=== PATIENT | female | born 1995 | race Caucasian/White ===

== ENCOUNTER 2021-06-16 11:16 | Emergency (ER) | payer OTHER ==
[~2021-06-16] VITALS: Ht 167.6 cm; Wt 60.5 kg
[2021-06-16] MEDS ORDERED: MULTTAB20 PO (12:50)
[2021-06-16] MEDS ORDERED: PROBCAP14 PO (12:50)
[2021-06-16 14:33] LABS: BASO % 0.6 % (0.0-1.0); EOS # 0.1 10^3/uL (0.0-0.5); EOS % 1.1 % (0.0-3.0); HEMATOCRIT 42.3 % (36.0-47.0); HEMOGLOBIN 13.6 g/dl (12.0-15.5); LYMPH # 1.2 10^3/uL (1.5-5.0); LYMPH % 22.3 % (24.0-44.0); MEAN CORPUSCULAR HEMOGLOBIN 27.7 pg (27.0-33.0); MEAN CORPUSCULAR HGB CONC 32.2 g/dl (32.0-36.5); MEAN CORPUSCULAR VOLUME 86.2 fl (80.0-96.0); MONO # 0.6 10^3/uL (0.0-0.8); MONO % 11.5 % (2.0-8.0); NEUTROPHILS # 3.5 10^3/uL (1.5-8.5); NEUTROPHILS % 64.3 % (36.0-66.0); PLATELET COUNT, AUTOMATED 259 10^3/uL (150-450); RED BLOOD COUNT 4.91 10^6/uL (4.00-5.40); WHITE BLOOD COUNT 5.4 10^3/uL (4.0-10.0)
[2021-06-16 15:26] LABS: BLOOD UREA NITROGEN 12 MG/DL (7-18); CALCIUM LEVEL 9.2 MG/DL (8.5-10.1); CARBON DIOXIDE LEVEL 24 MEQ/L (21-32); CHLORIDE LEVEL 106 MEQ/L (98-107); CREATININE FOR GFR 0.69 MG/DL (0.55-1.30); GLOMERULAR FILTRATION RATE > 60.0 (>60); GLUCOSE, FASTING 81 MG/DL (70-100); POTASSIUM SERUM 3.6 MEQ/L (3.5-5.1); SODIUM LEVEL 136 MEQ/L (136-145)
[2021-06-16 16:25] VITALS: BP 124/60
== END 2021-06-16 16:40 | disposition home or self-care (01) ==
LOC: M ED 11:16
DX: O20.0 Threatened abortion (principal); O26.899 Other specified pregnancy related conditions, unspecified trimester; R10.32 Left lower quadrant pain; Z79.899 Other long term (current) drug therapy; Z3A.00 Weeks of gestation of pregnancy not specified

== ENCOUNTER 2021-09-23 15:36 | Emergency (ER) | payer OTHER ==
[~2021-09-23] VITALS: Ht 167.6 cm; Wt 64.1 kg
[~2021-09-23 15:36] MED LIST: MULTTAB20 PO; PROBCAP14 PO
[2021-09-23] MEDS ORDERED: ASPI81CH33 PO (15:48)
--- OUTSIDE RECORDS SUMMARY | 2021-09-24 00:20 | CCD ---
Author Author [facility] Organization [facility] Address Unknown Phone Unavailable Care Team Providers Care Personnel Administrator Name Role Phone RESHMA RICO MD Unavailable Unavailable JOANARESHMA MD Unavailable Unavailable JOANARESHMA MD Unavailable Unavailable JOANARESHMA MD Unavailable Unavailable JOANARESHMA MD Unavailable Unavailable JOANARESHMA MD Unavailable Unavailable JOANAEFRAQBOJUDITH JACKSON MD Unavailable Unavailable JOANAEFRAQBOJUDITH JACKSON MD Unavailable Unavailable JOANARESHMA MD Unavailable Unavailable JOANARESHMA MD Unavailable Unavailable JOANARESHMA MD Unavailable Unavailable JOANARESHMA MD Unavailable Unavailable JOANARESHMA MD Unavailable Unavailable JOANARESHMA MD Unavailable Unavailable JOANARESHMA MD Unavailable Unavailable JOANAGALINABOJUDITH JACKSON MD Unavailable Unavailable JOANAEFRAQBOJUDITH JACKSON MD Unavailable Unavailable JOANA MAQBOJUDITH JACKSON MD Unavailable Unavailable JOANAEFRAQBOJUDITH JACKSON MD Unavailable Unavailable JOANAEFRAQBOJUDITH JACKSON MD Unavailable Unavailable JOANARESHMA MD Unavailable Unavailable JOANA MAQBOJUDITH JACKSON MD Unavailable Unavailable JOANA MAQBOJUDITH JACKSON MD Unavailable Unavailable JOANAEFRAQBOJUDITH JACKSON MD Unavailable Unavailable JOANA MAQBOJUDITH JACKSON MD Unavailable Unavailable JOANA, MAQBOOL RODGER MD Unavailable Unavailable JOANA, MAQBOOL RODGER MD Unavailable Unavailable JOANA, MAQBOOL RODGER MD Unavailable Unavailable JOANA, MAQBOOL RODGER MD Unavailable Unavailable JOANA, MAQBOOL RODGER MD Unavailable Unavailable JOANA, MAQBOOL RODGER MD Unavailable Unavailable JOANA, MAQBOOL RODGER MD Unavailable Unavailable JOANA, MAQBOOL RODGER MD Unavailable Unavailable JOANA, MAQBOOL RODGER MD Unavailable Unavailable JOANA, MAQBOOL RODGER MD Unavailable Unavailable JOANA, MAQBOOL RODGER MD Unavailable Unavailable JOANA, MAQBOOL RODGER MD Unavailable Unavailable JOANA, MAQBOOL RODGER MD Unavailable Unavailable JOANA, MAQBOOL RODGER MD Unavailable Unavailable JOANA, MAQBOOL RODGER MD Unavailable Unavailable JOANA, MAQBOOL RODGER MD Unavailable Unavailable JOANA, MAQBOOL RODGER MD Unavailable Unavailable JOANA, MAQBOOL RODGER MD Unavailable Unavailable JOANA, MAQBOOL RODGER MD Unavailable Unavailable JOANA, MAQBOOL RODGER MD Unavailable Unavailable JOANA, MAQBOOL RODGER MD Unavailable Unavailable JOANA, MAQBOOL RODGER MD Unavailable Unavailable JOANA, MAQBOOL RODGER MD Unavailable Unavailable JOANA, MAQBOOL RODGER MD Unavailable Unavailable JOANA, MAQBOOL RODGER MD Unavailable Unavailable JOANA, MAQBOOL RODGER MD Unavailable Unavailable JOANA, MAQBOOL RODGER MD Unavailable Unavailable JOANA, MAQBOOL RODGER MD Unavailable Unavailable JOANA, MAQBOOL RODGER MD Unavailable Unavailable JOANA, MAQBOOL RODGER MD Unavailable Unavailable JOANA, MAQBOOL RODGER MD Unavailable Unavailable JOANA, MAQBOOL RODGER MD Unavailable Unavailable JOANA, MAQBOOL RODGER MD Unavailable Unavailable JOANA, MAQBOOL RODGER MD Unavailable Unavailable JOANA, MAQBOOL RODGER MD Unavailable Unavailable JOANA, MAQBOOL RODGER MD Unavailable Unavailable JOANA, MAQBOOL RODGER MD Unavailable Unavailable JOANA, MAQBOOL RODGER MD Unavailable Unavailable JOANA, MAQBOOL RODGER MD Unavailable Unavailable JOANA, MAQBOOL RDOGER MD Unavailable Unavailable JOANA, MAQBOOL RODGER MD Unavailable Unavailable JOANA, MAQBOOL RODGER MD Unavailable Unavailable JOANA, MAQBOOL RODGER MD Unavailable Unavailable JOANA, MAQBOOL RODGER MD Unavailable Unavailable JOANA, MAQBOOL RODGER MD Unavailable Unavailable JOANA, MAQBOOL RODGER MD Unavailable Unavailable JOANA, MAQBOOL RODGER MD Unavailable Unavailable JOANA, MAQBOOL RODGER MD Unavailable Unavailable JOANA, MAQBOOL RODGER MD Unavailable Unavailable JOANA, MAQBOOL RODGER MD Unavailable Unavailable JOANA, MAQBOOL RODGER MD Unavailable Unavailable JOANA, MAQBOOL RODGER MD Unavailable Unavailable JOANA, MAQBOOL RODGER MD Unavailable Unavailable JOANA, MAQBOOL RODGER MD Unavailable Unavailable Re-disclosure Warning The records that you are about to access may contain information from federally-assisted alcohol or drug abuse programs. If such information is present, then the following federally mandated warning applies: This information has been disclosed to you from records protected by federal confidentiality rules (42 CFR part 2). The federal rules prohibit you from making any further disclosure of this information unless further disclosure is expressly permitted by the written consent of the person to whom it pertains or as otherwise permitted by 42 CFR part 2. A general authorization for the release of medical or other information is NOT sufficient for this purpose. The Federal rules restrict any use of the information to criminally investigate or prosecute any alcohol or drug abuse patient.The records that you are about to access may contain highly sensitive health information, the redisclosure of which is protected by Article 27-F of the [facility] [facility] [place] [facility] law. If you continue you may have access to information: Regarding HIV / AIDS; Provided by facilities licensed or operated by the [facility] Office of Mental Health; or Provided by the [facility] Office for People With Developmental Disabilities. If such information is present, then the following [facility] mandated warning applies: This information has been disclosed to you from confidential records which are protected by state law. State law prohibits you from making any further disclosure of this information without the specific written consent of the person to whom it pertains, or as otherwise permitted by law. Any unauthorized further disclosure in violation of state law may result in a fine or skilled nursing sentence or both. A general authorization for the release of medical or other information is NOT sufficient authorization for further disc losure. Encounters Encounter Providers Location Date Indications Data Source(s ) Outpatient Attender: RODGER RICO MD Medical [facility] 09/09 01:15:00 PM EST [facility] (Rodger Rico MD) Medications Medication Brand Name Start Date Product Form Dose Route Admi nistrative Instructions Pharmacy Instructions Status Indications Reaction Description Data Source(s) 09/09/2021 12:00:00 AM EST active [facility] (Rodger Rcio MD) Aspirin 81 MG Delayed Release Oral Tablet Aspirin 09/09/2021 1 2:00:00 AM EST ORAL active [facility] (Rodger Rico MD) Probiotic Mature Adult Probiotic Mature Adult 09/09/2021 12:00:00 AM EST ORAL active [facility] (Amber Rico MD) Insurance Providers Payer name Policy type / Coverage type Policy ID Covered libertarian ID Covered libertarian's relationship to villalba Policy Villalba Plan Information [facility] [id number] [facility] [id number] Problems, Conditions, and Diagnoses No Information Surgeries/Procedures Procedure Description Date Indications Data Source(s) ECG ROUTINE ECG W/LEAST 12 LDS W/I&R 09/09/2021 12:00: 00 AM EST [facility] (Rodger Rico MD) ECHO TTHRC R-T 2D W/WOM-MODE COMPL SPEC&COLR DOP 09/09 12:00:00 AM EST [facility] (Rodger Rico MD) OFFICE OUTPATIENT NEW 45 MINUTES 09/09/2021 12:00:00 A M EST [facility] (Rodger Rico MD) Results No Information Social History No Information Vital Signs ID Date Data Source UNK Name Value Range Interpretation Code Description Data Source(s) Body height 66 [in_i] 66 [in_i] [facility] (Rodger Rico MD) 5'6" Oxygen saturation in Arterial blood by Pulse oximetry 99 % 99 % [facility] (Rodger Rico MD) Body weight 141.50 [lb_av] 141.50 [lb_av] [facility] T (Rodger Rico MD) Body mass index (BMI) [Ratio] 22.8 kg/m2 22.8 k g/m2 [facility] (Rodger Rico MD) Body temperature 97.9 [degF] 97.9 [degF] JENELLE (Rodger Rico MD) Systolic blood pressure 122 mm[Hg] 122 mm[Hg] M [facility] (Rodger Rico MD) Diastolic blood pressure 73 mm[Hg] 73 mm[Hg] [facility] (Rodger Rico MD) Heart rate 89 /min 89 /min JENELLE (Rodger Rico MD)
--- OUTSIDE RECORDS SUMMARY | 2021-09-24 00:20 | CCD | Continuity of Care Document ---
Author Author [facility] Organization Unknown Address [address] [place] [id number] Phone [phone] Care Team Providers Care Contact Center Analyst Name Role Phone Chrisdianne Torres [facility] AUTM [phone] Chris Melissa [facility] AUT [phone] Social History Type Date Description Comments Sex Unknown Allergies and adverse reactions Description No Known Drug Allergies Medications Active Medications SIG Qnty Indications Ordering Provide r Date Aspirin 81mg Tablets 1 by mouth every day 90tabs [facility] 09/09/20 21 27-1mg Tablets [facility] 09/09/2021 Probiotic Mature Adult Capsules take one by mouth twice a day 30caps [facility] Vital Signs Date Vital Result Comment 09/09/2021 2:00pm Height 66 inches 5'6" Weight 141.50 lb BMI (Body Mass Index) 22.8 kg/m2 Body Temperature 97.9 F BP Systolic 122 mmHg BP Diastolic 73 mmHg Heart Rate 89 /min O2 % BldC Oximetry 99 % Referrals Refer to Reason for Referral Status Appt Date Rodger Rico M.D. Created [address] [place] [id number] [phone]
--- OUTSIDE RECORDS SUMMARY | 2021-09-24 00:20 | CCD | Continuity of Care Document ---
Author Author [facility] Organization Unknown Address [address] [place] [id number] Phone [phone] Care Team Providers Care Intensive Care Anaesthetist Name Role Phone Chris Torres [facility] AUTM [phone] Chris Melissa [facility] AUT [phone] Social History Type Date Description Comments Sex Unknown Allergies and adverse reactions Description No Known Drug Allergies Medications Active Medications SIG Qnty Indications Ordering Provide r Date Aspirin 81mg Tablets DR 1 by mouth every day 90tabs Rodger [...] /min O2 % BldC Oximetry 99 % Procedures Date Code Description Status 09/09/2021 23461 Office/Outpatient New Moderate M DM 45-59 Minutes Completed 09/09/2021 81872 Echocardiogram, Complete Complet ed 09/09/2021 86831 EKG Completed Encounters Type Date Location Provider Dx Diagnosis Office Visit 09/09/2021 2:15p [facility] R07.9 Chest pain, unspecified I49.49 Other premature depolarizati on I30.9 Acute pericarditis, unspecif ied Assessments Date Code Description Provider 09/09/2021 R07.9 Chest pain, unspecified [facility]ger As [facility] 09/09/2021 I49.49 Other premature depolarization M catherine [facility] 09/09/2021 I30.9 Acute pericarditis, unspecified [facility] Plan of Treatment Future Appointment(s):* 10/23/2021 2:15 pm - [facility] at [facility] Referrals Refer to Dr Reason for Referral Status Appt Date Rodger Rico M.D. Created [address] [place] [id number] [phone]
[2021-09-24 00:50] LABS: GC DNA AMPLIFICATION NEGATIVE (NEGATIVE)
--- NOTE | 2021-09-24 01:20 | REPVR ---
PROCEDURE INFORMATION: Exam: US After First Trimester, Transabdominal Exam date and time: 09/23/2021 11:44 PM Age: 25 years old Clinical indication: complicated by abdominal or pelvic pain; Lower; Second trimester (14 weeks 0 days to 27 weeks 6 days); Gestational age or lmp: 19w2d; ; Additional info: Abd pain, pelvic pain TECHNIQUE: Imaging protocol: Real-time transabdominal obstetrical ultrasound of the maternal pelvis and a second or third trimester with image documentation. COMPARISON: No relevant prior studies available. FINDINGS: Last menstrual period: 05/11/2021 Gestation: There is a single live intrauterine . heart rate: 135 bpm Presentation: Cephalic presentation: Placenta: Anterior location. Grade 1. No placenta previa or placental abruption identified. Amniotic fluid: Within normal limits. ANATOMY: midline falx: Within normal limits. cerebellum: Within normal limits. lateral ventricles: Within normal limits. cisterna magna: Within normal limits. choroid plexus: Within normal limits. upper lip and nose: Within normal limits. heart four-chamber view, heart size and position: Within normal limits. kidneys: Within normal limits. stomach: Within normal limits. urinary bladder: Within normal limits. spine: Within normal limits. Umbilical cord insertion site into the abdomen: Within normal limits. Umbilical cord vessel number: Normal 3 vessel umbilical cord. arms and hands: Within normal limits. legs and feet: Within normal limits. BIOMETRY: Estimated due date (AUA): 02/13/2022 Estimated due date (LMP): 02/15/2022 Gestational age (AUA): 19 weeks 4 days Gestational age (LMP): 19 weeks 2 days Estimated weight: 293 g +/- 43 g (0 lb 10 oz +/- 2 oz) Estimated weight percentile: 55% Biparietal diameter (BPD): 4.52 cm; 19 weeks 5 days (60%) Head circumference (HC): 16.71 cm; 19 weeks 3 days (52%) Abdominal circumference (AC): 14.61 cm; 20 weeks 0 days (63%) Humerus length (HL): 2.86 cm; 19 weeks 2 days (50%) Femur length (FL): 2.89 cm; 19 weeks 0 days (39%) biometric ratios: CI = 0.75 (0.70-0.86); FL/BPD = 0.64; HC/AC = 1.14 (1.09-1.26); FL/AC = 0.20 MATERNAL: Uterus: Unremarkable. Cervix: Closed. 3.6 cm in length. Right ovary/adnexa: Ovary is obscured by overlying bowel gas. Left ovary/adnexa: Ovary is obscured by overlying bowel gas. Intraperitoneal space: No intraperitoneal free fluid. IMPRESSION: 1. Single live intrauterine with a gestational age by today's ultrasound of 19 weeks 4 days and estimated due date on 02/13/2022 with appropriate signs of growth. 2. Estimated weight of 293 g +/- 43 g (0 lb 10 oz +/- 2 oz), which is in the 55th percentile. Electronically signed by: Moi Kaba On 09/24/2021 01:19:35 AM
[2021-09-24] MEDS ORDERED: METR1GEL7 PV (01:43)
[2021-09-24 02:15] VITALS: BP 118/64
== END 2021-09-24 02:17 | disposition home or self-care (01) ==
LOC: M ED 15:36
DX: O26.90 Pregnancy related conditions, unspecified, unspecified trimester (principal); R10.9 Unspecified abdominal pain; O23.592 Infection of other part of genital tract in pregnancy, second trimester; Z3A.19 19 weeks gestation of pregnancy; Z79.899 Other long term (current) drug therapy

== ENCOUNTER 2021-12-19 00:17 | Outpatient (CLI) | payer OTHER ==
[~2021-12-19] VITALS: Ht 167.6 cm; Wt 73.4 kg
[~2021-12-19 00:17] MED LIST changes: +ASPI81CH33 PO; +METR1GEL7 PV
[2021-12-19 00:33] VITALS: BP 134/80
[2021-12-19] MEDS ORDERED: MORPHINE 4 MG/ML 1ML VIAL/SYRINGE (J2270) IV ONE ×2 (00:55→02:00)
[2021-12-19] MEDS ORDERED: LR 1,000 ML IV SCH (01:00)
[2021-12-19] MEDS ORDERED: LR 1,000 ML IV ONE (01:00)
[2021-12-19 01:09] VITALS: BP 127/86
[2021-12-19 01:23] LABS: HEMATOCRIT 36.7 % (36.0-47.0); HEMOGLOBIN 11.9 g/dl (12.0-15.5); MEAN CORPUSCULAR HGB CONC 32.4 g/dl (32.0-36.5); MEAN CORPUSCULAR VOLUME 83.2 fl (80.0-96.0); PLATELET COUNT, AUTOMATED 228 10^3/uL (150-450); RED BLOOD COUNT 4.41 10^6/uL (4.00-5.40); WHITE BLOOD COUNT 10.6 10^3/uL (4.0-10.0)
[2021-12-19 01:46] VITALS: BP 126/79
[2021-12-19 01:49] LABS: ALBUMIN 2.7 GM/DL (3.2-5.2); ALT/SGPT 23 U/L (12-78); BILIRUBIN,TOTAL 0.1 MG/DL (0.2-1.0); BLOOD UREA NITROGEN 13 MG/DL (7-18); CALCIUM LEVEL 9.2 MG/DL (8.5-10.1); CARBON DIOXIDE LEVEL 23 MEQ/L (21-32); CHLORIDE LEVEL 109 MEQ/L (98-107); CREATININE FOR GFR 0.81 MG/DL (0.55-1.30); GLOMERULAR FILTRATION RATE > 60.0 (>60); GLUCOSE, FASTING 103 MG/DL (70-100); POTASSIUM SERUM 3.8 MEQ/L (3.5-5.1); SODIUM LEVEL 140 MEQ/L (136-145); TOTAL PROTEIN 6.3 GM/DL (6.4-8.2)
[2021-12-19 02:04] VITALS: BP 157/98
[2021-12-19] MEDS ORDERED: TAMSULOSIN 0.4 MG CAP PO ONE (02:30)
[2021-12-19 03:00] VITALS: BP 117/60
[2021-12-19] MEDS ORDERED: FLUCONAZOLE 50MG TABLET PO ONE (04:00)
[2021-12-19] MEDS ORDERED: CYCLOBENZAPRINE 5MG TABLET PO ONE (04:00)
[2021-12-19 04:30] VITALS: BP 120/79
[2021-12-19] MEDS ORDERED: CYCL5TAB PO (04:40)
[2021-12-19] MEDS ORDERED: TAMSULOSIN 0.4 MG CAP PO SCH (09:00)
== END 2021-12-19 04:40 | disposition home or self-care (01) ==
LOC: M LDO 00:17
PROVIDERS: ATTEND Obstetrics & Gynecology
DX: O26.893 Other specified pregnancy related conditions, third trimester (principal); R25.2 Cramp and spasm; Z3A.31 31 weeks gestation of pregnancy; O10.013 Pre-existing essential hypertension complicating pregnancy, third trimester
CPT/HCPCS: 59025; 76775; 76815; 80053; 81001; 85027; 96361; 96374; 96376; G0378; G0463; J2270

== ENCOUNTER → 2022-01-06 | Outpatient (CLI) | payer OTHER ==
[~2022-01-06] MED LIST changes: +CYCL5TAB PO
[2022-01-06 15:10] LABS: HEMATOCRIT 36.4 % (36.0-47.0); MEAN CORPUSCULAR HEMOGLOBIN 27.6 pg (27.0-33.0); MEAN CORPUSCULAR VOLUME 83.7 fl (80.0-96.0); PLATELET COUNT, AUTOMATED 236 10^3/uL (150-450); RED BLOOD COUNT 4.35 10^6/uL (4.00-5.40); WHITE BLOOD COUNT 10.3 10^3/uL (4.0-10.0)
[2022-01-06 15:28] LABS: CREATININE,RANDOM URINE 39.1 MG/DL; TOTAL PROTEIN,RANDOM URINE 7.6 MG/DL (0.0-12.0)
[2022-01-06 15:40] LABS: ALT/SGPT 40 U/L (12-78); BILIRUBIN,TOTAL 0.2 MG/DL (0.2-1.0); CREATININE FOR GFR 0.56 MG/DL (0.55-1.30); GLOMERULAR FILTRATION RATE > 60.0 (>60); LDH LACTATE DEHYDROGENASE 142 U/L (84-246); URIC ACID 3.8 MG/DL (2.6-6.0)
== END ==
LOC: M LAB 14:36
PROVIDERS: ATTEND Obstetrics & Gynecology
DX: I10 Essential (primary) hypertension (principal)

== ENCOUNTER 2022-01-16 19:17 | Outpatient (CLI) | payer OTHER ==
[~2022-01-16] VITALS: Ht 167.6 cm; Wt 75.5 kg
[2022-01-16] MEDS ORDERED: ACET325C5 PO (19:39)
[2022-01-16 19:40] VITALS: BP 155/104
[2022-01-16 19:55] VITALS: BP 148/99
[2022-01-16] MEDS ORDERED: FIORICET TAB PO ONE (20:20)
[2022-01-16] MEDS ORDERED: ONDANSETRON 4MG ORAL DISINTEGRATING TAB PO ONE (20:25)
[2022-01-16] MEDS ORDERED: diphenhydrAMINE 25MG CAP PO ONE (20:30)
[2022-01-16 21:01] VITALS: BP 153/97
[2022-01-16 21:53] VITALS: BP 142/97
[2022-01-16] MEDS ORDERED: PROCHLORPERAZINE 5MG TAB PO ONE (22:00)
[2022-01-17] MEDS ORDERED: CYCL-707 PO (13:52)
== END 2022-01-16 22:11 | disposition home or self-care (01) ==
LOC: M LDO 19:17
PROVIDERS: ATTEND Obstetrics & Gynecology
DX: O10.013 Pre-existing essential hypertension complicating pregnancy, third trimester (principal); Z3A.35 35 weeks gestation of pregnancy
CPT/HCPCS: 59025; 76815; G0463

== ENCOUNTER 2022-01-17 13:32 | Outpatient (CLI) | payer OTHER ==
[~2022-01-17] VITALS: Ht 167.6 cm; Wt 76.2 kg
[~2022-01-17 13:32] MED LIST changes: +ACET325C5 PO
[2022-01-17 13:48] VITALS: BP 139/97
[2022-01-17] MEDS ORDERED: CYCL-707 PO (13:52)
[2022-01-17 14:49] LABS: URINE TOTAL PROTEIN 11.4 MG/DL (0-12)
[2022-01-17 15:56] LABS: TOTAL PROTEIN 24 HOUR URINE 290.7 MG/24HR (50-150)
== END 2022-01-17 15:44 | disposition home or self-care (01) ==
LOC: M LDO 13:32
PROVIDERS: ATTEND Registered Nurse
DX: O10.013 Pre-existing essential hypertension complicating pregnancy, third trimester (principal); Z3A.35 35 weeks gestation of pregnancy
CPT/HCPCS: 59025; 81050; 84156; G0378; G0463

== ENCOUNTER → 2022-01-22 | Outpatient (CLI) | payer OTHER ==
[~2022-01-22] MED LIST changes: +CYCL-707 PO
[2022-01-22 11:15] LABS: BASO % 0.4 % (0.0-1.0); EOS # 0.1 10^3/uL (0.0-0.5); EOS % 0.8 % (0.0-3.0); HEMATOCRIT 36.8 % (36.0-47.0); HEMOGLOBIN 11.5 g/dl (12.0-15.5); LYMPH # 2.2 10^3/uL (1.5-5.0); LYMPH % 20.5 % (24.0-44.0); MEAN CORPUSCULAR HEMOGLOBIN 26.2 pg (27.0-33.0); MEAN CORPUSCULAR HGB CONC 31.3 g/dl (32.0-36.5); MEAN CORPUSCULAR VOLUME 83.8 fl (80.0-96.0); MONO # 0.8 10^3/uL (0.0-0.8); MONO % 7.7 % (2.0-8.0); NEUTROPHILS # 7.4 10^3/uL (1.5-8.5); NEUTROPHILS % 69.4 % (36.0-66.0); PLATELET COUNT, AUTOMATED 226 10^3/uL (150-450); RED BLOOD COUNT 4.39 10^6/uL (4.00-5.40); WHITE BLOOD COUNT 10.7 10^3/uL (4.0-10.0)
[2022-01-22 11:52] LABS: ALBUMIN 2.6 GM/DL (3.2-5.2); ALT/SGPT 34 U/L (12-78); BILIRUBIN,TOTAL 0.2 MG/DL (0.2-1.0); BLOOD UREA NITROGEN 10 MG/DL (7-18); CALCIUM LEVEL 9.2 MG/DL (8.5-10.1); CARBON DIOXIDE LEVEL 25 MEQ/L (21-32); CHLORIDE LEVEL 105 MEQ/L (98-107); GLOMERULAR FILTRATION RATE > 60.0 (>60); GLUCOSE, FASTING 74 MG/DL (70-100); LDH LACTATE DEHYDROGENASE 159 U/L (84-246); POTASSIUM SERUM 4.4 MEQ/L (3.5-5.1); SODIUM LEVEL 137 MEQ/L (136-145); TOTAL PROTEIN 5.9 GM/DL (6.4-8.2)
== END ==
LOC: M LAB 10:17
PROVIDERS: ATTEND Obstetrics & Gynecology
DX: O10.013 Pre-existing essential hypertension complicating pregnancy, third trimester (principal)

== ENCOUNTER → 2022-02-06 | Outpatient (CLI) | payer OTHER ==
[~2022-02-06] MED LIST changes: +ACET-683 PO; +COLA100C5 PO; +IBUP80TA PO; +OXYC-517 PO
[2022-02-06 13:56] LABS: APPEARANCE, URINE CLEAR (CLEAR); BACTERIA, URINE AUTO NEGATIVE (NEGATIVE); BILIRUBIN, URINE AUTO NEGATIVE (NEGATIVE); BLOOD, URINE BLOOD NEGATIVE (NEGATIVE); COLOR, URINE YELLOW (YELLOW); GLUCOSE, URINE (UA) AUTO NEGATIVE (NEGATIVE); KETONE, URINE AUTO NEGATIVE (NEGATIVE); LEUKOCYTE ESTERASE, URINE AUTO NEGATIVE (NEGATIVE); NITRITE, URINE AUTO NEGATIVE (NEGATIVE); PROTEIN, URINE AUTO NEGATIVE (NEGATIVE); RBC, URINE AUTO 0 /HPF (0-3); SPECIFIC GRAVITY URINE AUTO 1.013 (1.002-1.035); SQUAMOUS EPITHELIAL CELL UR AU 0 /HPF (0-6); UROBILINOGEN, URINE AUTO 0.2 mg/dL (0.0-2.0); WBC, URINE AUTO 0 /HPF (0-3)
== END ==
LOC: M LAB 12:46
PROVIDERS: ATTEND Obstetrics & Gynecology
DX: R30.9 Painful micturition, unspecified (principal)

== ENCOUNTER 2022-04-09 07:52 | Emergency (ER) | payer OTHER ==
[~2022-04-09] VITALS: Ht 167.6 cm; Wt 64.8 kg
[2022-04-09] MEDS ORDERED: METR0.7533 TOP (08:01)
[2022-04-09 08:46] LABS: BASO % 0.6 % (0.0-1.0); EOS # 0.1 10^3/uL (0.0-0.5); EOS % 1.9 % (0.0-3.0); HEMATOCRIT 38.8 % (36.0-47.0); HEMOGLOBIN 12.4 g/dl (12.0-15.5); LYMPH # 1.8 10^3/uL (1.5-5.0); LYMPH % 38.2 % (24.0-44.0); MEAN CORPUSCULAR HEMOGLOBIN 26.6 pg (27.0-33.0); MEAN CORPUSCULAR VOLUME 83.3 fl (80.0-96.0); MONO # 0.4 10^3/uL (0.0-0.8); MONO % 9.2 % (2.0-8.0); NEUTROPHILS # 2.4 10^3/uL (1.5-8.5); NEUTROPHILS % 50.1 % (36.0-66.0); PLATELET COUNT, AUTOMATED 292 10^3/uL (150-450); RED BLOOD COUNT 4.66 10^6/uL (4.00-5.40); WHITE BLOOD COUNT 4.8 10^3/uL (4.0-10.0)
[2022-04-09] MEDS ORDERED: PERCOCET 5MG/325MG TAB PO ONE (09:05)
[2022-04-09] MEDS ORDERED: NS 1,000 ML IV ONE (09:05)
[2022-04-09] MEDS ORDERED: ONDANSETRON 4MG/2ML VIAL IV ONE (09:05)
[2022-04-09 09:13] LABS: ALT/SGPT 23 U/L (12-78); BILIRUBIN,DIRECT 0.2 MG/DL (0.0-0.2); BILIRUBIN,TOTAL 0.6 MG/DL (0.2-1.0); LIPASE 110 U/L (73-393); TOTAL PROTEIN 7.3 GM/DL (6.4-8.2)
[2022-04-09 09:57] LABS: HCG, SERUM QUANTITATIVE < 1.0 MIU/ML
[2022-04-09] MEDS ORDERED: ISOVUE-370 76% 100ML VIAL As Ordered ONE (10:50)
[2022-04-09] MEDS: GASTROGRAFIN SOLUTION 30ML PO SCH ×2 (11:07→11:37)
[2022-04-09 15:10] VITALS: BP 121/82
== END 2022-04-09 15:15 | disposition home or self-care (01) ==
LOC: M ED 07:52
DX: R10.31 Right lower quadrant pain (principal); R11.0 Nausea; I10 Essential (primary) hypertension; K58.9 Irritable bowel syndrome, unspecified
CPT/HCPCS: 36415; 74177; 76830; 76856; 80047; 80076; 81001; 83690; 84702; 85025; 93976; 96361; 96374; 99284; J2405; Q9963; Q9967

== ENCOUNTER 2022-06-30 12:53 | Emergency (ER) | payer OTHER ==
[~2022-06-30] VITALS: Ht 167.6 cm; Wt 63.6 kg
[2022-06-30 12:53] VITALS: BP 136/88
[~2022-06-30 12:53] MED LIST changes: +METR0.7533 TOP
== END 2022-06-30 13:35 | disposition left against medical advice (07) ==
LOC: M ED 12:53
DX: Z53.29 Procedure and treatment not carried out because of patient's decision for other reasons (principal)

== ENCOUNTER → 2022-09-23 | Outpatient (CLI) | payer OTHER ==
[~2022-09-23] MED LIST changes: +METR0.7526 TOP; -METR0.7533 TOP
== END ==
LOC: M WHC 14:10
PROVIDERS: ATTEND Obstetrics & Gynecology
DX: N63.11 Unspecified lump in the right breast, upper outer quadrant (principal)

== ENCOUNTER → 2022-10-01 | Outpatient (CLI) | payer OTHER ==
[~2022-10-01] MED LIST changes: +**SFHN** LIDOCAINE 1% MDV 20ML VIAL ONE; +**SFHN** SODIUM BICARBONATE 8.4% 10MEQ 10ML VIAL ONE
[2022-10-01 14:39] VITALS: BP 144/88
== END ==
LOC: M WHCPRO 13:50
PROVIDERS: ATTEND Obstetrics & Gynecology
DX: O99.892 Other specified diseases and conditions complicating childbirth (principal); N63.11 Unspecified lump in the right breast, upper outer quadrant; Z3A.23 23 weeks gestation of pregnancy

== ENCOUNTER → 2022-10-19 | Outpatient (CLI) | payer OTHER ==
[~2022-10-19] MED LIST changes: -**SFHN** LIDOCAINE 1% MDV 20ML VIAL ONE; -**SFHN** SODIUM BICARBONATE 8.4% 10MEQ 10ML VIAL ONE
[2022-10-19 14:49] LABS: HEMATOCRIT 34.1 % (36.0-47.0); HEMOGLOBIN 10.9 g/dl (12.0-15.5); MEAN CORPUSCULAR HEMOGLOBIN 27.3 pg (27.0-33.0); MEAN CORPUSCULAR VOLUME 85.5 fl (80.0-96.0); PLATELET COUNT, AUTOMATED 277 10^3/uL (150-450); RED BLOOD COUNT 3.99 10^6/uL (4.00-5.40)
[2022-10-19 15:08] LABS: URIC ACID 3.9 MG/DL (3.1-7.8)
[2022-10-19 15:12] LABS: ALBUMIN 2.4 G/DL (3.2-5.2); ALKALINE PHOSPHATASE 75 U/L (46-116); ALT/SGPT 10 U/L (7.0-40); AST/SGOT 15 U/L (<34); BILIRUBIN,TOTAL 0.2 MG/DL (0.3-1.2); BLOOD UREA NITROGEN 12 MG/DL (9-23); CALCIUM LEVEL 8.8 MG/DL (8.5-10.1); CARBON DIOXIDE LEVEL 21 MMOL/L (20-31); CHLORIDE LEVEL 102 MMOL/L (98-107); GLOMERULAR FILTRATION RATE > 60.0 (>60); GLUCOSE, FASTING 70 MG/DL (60-100); POTASSIUM SERUM 4.1 MMOL/L (3.5-5.1); SODIUM LEVEL 136 MMOL/L (136-145); TOTAL PROTEIN 5.8 G/DL (5.7-8.2)
[2022-10-19 15:12] LABS: CREATININE,RANDOM URINE 36.1 MG/DL
== END ==
LOC: M LAB 14:17
DX: R80.9 Proteinuria, unspecified (principal); O10.012 Pre-existing essential hypertension complicating pregnancy, second trimester

== ENCOUNTER → 2022-10-21 | Outpatient (REF) | payer OTHER ==
[2022-10-21 16:16] LABS: URINE TOTAL PROTEIN 6.9 MG/DL (0-14)
[2022-10-21 16:36] LABS: TOTAL PROTEIN 24 HOUR URINE 196.6 MG/24HR (50-80)
== END ==
LOC: M LAB REF 13:59
PROVIDERS: ATTEND Obstetrics & Gynecology
DX: R80.9 Proteinuria, unspecified (principal); O10.012 Pre-existing essential hypertension complicating pregnancy, second trimester

== ENCOUNTER → 2022-11-06 | Outpatient (CLI) | payer OTHER | LOC: M WHC 15:35 | PROVIDERS: ATTEND Obstetrics & Gynecology | DX: Z36.89 Encounter for other specified antenatal screening (principal); Z3A.29 29 weeks gestation of pregnancy ==

== ENCOUNTER 2023-01-04 05:19 | Inpatient (IN) | payer OTHER ==
[~2023-01-04] VITALS: Ht 167.6 cm; Wt 73.3 kg
[2023-01-04] VITALS (8 sets, daily range): BP systolic 119–140; BP diastolic 75–95
[~2023-01-04 05:19] MED LIST changes: +D400400C PO; +IRON65TA2 PO; +LABE100T71 PO
[2023-01-04] MEDS ORDERED: LACTATED RINGER'S 1000 ML IV STA (05:33)
[2023-01-04] MEDS ORDERED: ceFAZolin SOD 2 GM in IV 1 EA IV ONE (05:35)
[2023-01-04] MEDS ORDERED: LR 1,000 ML IV SCH ×2 (05:35→07:15)
[2023-01-04 06:25] LABS: HEMATOCRIT 36.9 % (36.0-47.0); HEMOGLOBIN 11.9 g/dl (12.0-15.5); MEAN CORPUSCULAR HEMOGLOBIN 27.5 pg (27.0-33.0); MEAN CORPUSCULAR HGB CONC 32.2 g/dl (32.0-36.5); MEAN CORPUSCULAR VOLUME 85.4 fl (80.0-96.0); PLATELET COUNT, AUTOMATED 208 10^3/uL (150-450); RED BLOOD COUNT 4.32 10^6/uL (4.00-5.40); WHITE BLOOD COUNT 8.7 10^3/uL (4.0-10.0)
[2023-01-04] MEDS ORDERED: BICITRA 30ML SOLN UDC PO ONE (06:30)
[2023-01-04] MEDS ORDERED: fentaNYL 100 MCG/2 ML INJECTION IV PRN (07:15)
[2023-01-04] MEDS: SLF 3 ML SYR IV SCH ×3 (07:15→23:15)
[2023-01-04] MEDS ORDERED: METOCLOPRAMIDE INJ 10MG/2ML VIAL IV PRN ×2 (07:15→09:40)
[2023-01-04] MEDS ORDERED: diphenhydrAMINE 50MG/ML VIAL IV PRN (07:15)
[2023-01-04] MEDS ORDERED: **NOTE PATIENT COMMENT** MISC XX SCH (07:15)
[2023-01-04] MEDS ORDERED: oxyCODONE 5MG TAB PO PRN ×2 (07:15→09:40)
[2023-01-04] MEDS ORDERED: NALOXONE INJ 0.4MG/1ML VIAL IV PRN ×2 (07:15)
[2023-01-04] MEDS ORDERED: ONDANSETRON 4MG 2ML VIAL IV PRN ×2 (07:15→09:40)
[2023-01-04] MEDS ORDERED: MEPERIDINE 25 MG/ML 1ML VIAL IV PRN (07:15)
[2023-01-04] MEDS ORDERED: BUPIVACAINE HCL 0.25% 10ML VIAL SC ONE (07:35)
[2023-01-04 07:44] LABS: HIV 1&2 SCREEN CENTAUR NEGATIVE (NEGATIVE)
[2023-01-04] MEDS ORDERED: MORPHINE PRES-FREE INJ 10 MG/10 ML VIAL As Ordered ONE (08:00)
[2023-01-04] MEDS ORDERED: OXYTOCIN INJ 10UNITS/ML 1ML VIAL As Ordered ONE (08:00)
[2023-01-04] MEDS ORDERED: fentaNYL 100 MCG/2 ML INJECTION As Ordered ONE (08:00)
[2023-01-04] MEDS ORDERED: ACETAMINOPHEN 1000MG 100ML IV BAG As Ordered ONE (08:38)
[2023-01-04] MEDS ORDERED: KETOROLAC 60MG 2ML VIAL As Ordered ONE (08:55)
[2023-01-04 08:57] LABS: CORD GAS ABE V -1.4; CORD GAS HCO3 V 24.6 MEQ/L; CORD GAS O2 SAT V 70.8 %; CORD GAS PH V 7.337 UNITS; CORD GAS PO2 V 29.3 mmHg; CORD GAS SBC V 22.8 MEQ/L; CORD GAS TCO2 V 26.1 MEQ/L
[2023-01-04] MEDS ORDERED: OXYTOCIN 30UNITS IN 0.9% NaCl 500ML IV BAG As Ordered ONE (08:58)
[2023-01-04 08:59] LABS: CORD GAS ABE A -4.6; CORD GAS HCO3 A 20.3 MEQ/L; CORD GAS PCO2 A 37.2 mmHg; CORD GAS PH A 7.355 UNITS; CORD GAS PO2 A 45.3 mmHg; CORD GAS SBC A 20.3 MEQ/L; CORD GAS TCO2 A 21.5 MEQ/L
[2023-01-04] MEDS ORDERED: MEPERIDINE 50 MG/ML 1ML VIAL As Ordered ONE (09:20)
[2023-01-04] MEDS ORDERED: METHYLERGONOVINE MALEATE 0.2MG/ML 1ML VIAL IM PRN (09:40)
[2023-01-04] MEDS ORDERED: SIMETHICONE 80MG CHEW TAB PO PRN (09:40)
[2023-01-04] MEDS ORDERED: OXYTOCIN DRIP 30 UNITS in IV 1 EA IV SCH (09:40)
[2023-01-04] MEDS ORDERED: RHOGAM 300MCG (1500IU) INJ IM SCH (09:40)
[2023-01-04] MEDS: LR 1,000 ML IV SCH ×2 (09:40→17:40)
[2023-01-04] MEDS ORDERED: PERCOCET 5MG/325MG TAB As Ordered ONE (10:49)
[2023-01-04] MEDS ORDERED: ONDANSETRON 4MG 2ML VIAL As Ordered ONE (10:52)
[2023-01-04] MEDS ORDERED: oxyCODONE 5MG TAB As Ordered ONE (10:58)
[2023-01-04] MEDS: ACETAMINOPHEN 500 MG TAB PO SCH ×2 (15:31→21:16)
[2023-01-04] MEDS: KETOROLAC 30 MG/ML 1ML VIAL IV SCH ×2 (15:32→21:15)
[2023-01-04] MEDS: oxyCODONE 5MG TAB PO PRN (16:47)
[2023-01-04] MEDS: DOCUSATE SODIUM 100MG CAPSULE PO SCH (21:15)
[2023-01-05] MEDS: LR 1,000 ML IV SCH (01:40)
[2023-01-05 02:00] VITALS: BP 128/74
[2023-01-05] MEDS: KETOROLAC 30 MG/ML 1ML VIAL IV SCH (02:42)
[2023-01-05] MEDS: ACETAMINOPHEN 500 MG TAB PO SCH ×4 (02:42→20:25)
[2023-01-05] MEDS: oxyCODONE 5MG TAB PO PRN ×4 (02:49→23:02)
[2023-01-05 05:37] VITALS: BP 131/82
[2023-01-05 07:07] LABS: HEMATOCRIT 35.2 % (36.0-47.0); HEMOGLOBIN 11.1 g/dl (12.0-15.5); MEAN CORPUSCULAR HEMOGLOBIN 27.4 pg (27.0-33.0); MEAN CORPUSCULAR HGB CONC 31.5 g/dl (32.0-36.5); MEAN CORPUSCULAR VOLUME 86.9 fl (80.0-96.0); PLATELET COUNT, AUTOMATED 190 10^3/uL (150-450); RED BLOOD COUNT 4.05 10^6/uL (4.00-5.40); WHITE BLOOD COUNT 8.8 10^3/uL (4.0-10.0)
[2023-01-05] MEDS: PRENATAL VITAMINS CHEWABLE TABLET PO SCH (07:51)
[2023-01-05] MEDS: DOCUSATE SODIUM 100MG CAPSULE PO SCH ×2 (07:51→21:00)
[2023-01-05 10:00] VITALS: BP 137/91
[2023-01-05] MEDS: IBUPROFEN 800 MG TAB PO SCH ×2 (11:51→18:35)
[2023-01-05 14:00] VITALS: BP 137/91
[2023-01-05 18:00] VITALS: BP 126/87
[2023-01-05] MEDS ORDERED: LOPERAMIDE 2 MG CAPLET PO PRN (20:00)
[2023-01-05 22:00] VITALS: BP 122/77
[2023-01-06] MEDS: ACETAMINOPHEN 500 MG TAB PO SCH ×2 (03:08→08:28)
[2023-01-06] MEDS: IBUPROFEN 800 MG TAB PO SCH ×2 (03:09→10:18)
[2023-01-06] MEDS: oxyCODONE 5MG TAB PO PRN ×2 (05:16→11:43)
[2023-01-06] MEDS ORDERED: ACET-683 PO (07:27)
[2023-01-06] MEDS ORDERED: COLA100C5 PO (07:27)
[2023-01-06] MEDS ORDERED: IBUP80TA PO (07:27)
[2023-01-06] MEDS ORDERED: OXYC-517 PO (07:27)
[2023-01-06] MEDS: PRENATAL VITAMINS CHEWABLE TABLET PO SCH (08:26)
[2023-01-06] MEDS: DOCUSATE SODIUM 100MG CAPSULE PO SCH (08:26)
[2023-01-06] MEDS ORDERED: MEASLES,MUMPS,RUBELLA VACCINE INJ (MMR-II) SC.IMMUN ONE (09:00)
== END 2023-01-06 12:35 | disposition home or self-care (01) | DRG 772 ==
LOC: M LDI 05:19 → M OBS 12:15
PROVIDERS: ADMIT Obstetrics & Gynecology; ATTEND Obstetrics & Gynecology
PROC: 10D00Z1 Extraction of Products of Conception, Low, Open Approach (ICD-10-PCS; principal; 2023-01-04 07:30)
DX: O34.211 Maternal care for low transverse scar from previous cesarean delivery (principal); O10.02 Pre-existing essential hypertension complicating childbirth; Z3A.37 37 weeks gestation of pregnancy; Z37.0 Single live birth; Z79.899 Other long term (current) drug therapy